=== PATIENT | female | born 1985 | race Caucasian/White ===

== ENCOUNTER 2023-09-11 10:18 | Emergency (ER) | payer OTHER, SELFPAY ==
[2023-09-11 10:28] VITALS: BP 146/95
--- NOTE | 2023-09-11 10:42 | EDRN ---
Faustino Bledsoe PA in room w/ pt at this time.
--- NOTE | 2023-09-11 10:45 | ED.GENMED ---
History of Present Illness
General
Chief Complaint: Flank Pain
Time Seen by Provider: 09/11/23 10:32
Travel History
Have you had any contact with someone who has COVID-19?: No
Do you have any symptoms of coronavirus? Fever > 100 degrees, chills, cough, shortness of breath, sore throat, loss of taste or smell, muscle aches, or headache?: No
History of Present Illness
History of Present Illness:
38-year-old female with history of depression and bipolar disorder presents to the emergency department for evaluation of right flank pain beginning last night. Initially was present over the right kidney region, today radiates to the right
anterior abdomen. Pain is made worse when she is twisting or upright, improved when lying supine. No colicky nature or sharp nature to the pain. Denies any lower urinary tract voiding symptoms, fever, chills, sweats, nausea, or vomiting. Denies
any history of intra-abdominal surgery
Past History
Past History
ED Past Medical History: Psychiatric (Bipolar disorder) and Other (Polycystic ovaries)
ED Past Surgical History: None
Social History
Tobacco: Non-smoker
Alcohol: None
Drug: None
Personal: Single
Living: with family
Employment: Employed
Family History
Family History: Other (Noncontributory)
Review of Systems
Review of Systems
Allergies reviewed?: Yes
All Other Systems: ROS reviewed and negative except as documented in HPI and ROS
Phy Exam
Physical Exam
Physical Exam:
GEN: Well appearing, NAD, WDWN
HEENT: Oral mucosa moist, no scleral icterus
Cardiac: Regular rate
Lung: No respiratory distress, no tachypnea
Abdomen: Soft, nontender, no CVA tenderness bilaterally
MSK: No gross deformity or injuries
Skin: Good color, no pallor or jaundice, no rashes
Neuro: AO x3, moves all extremities freely
Psych: Calm, cooperative
Course
Orders/Labs/Results
Orders:
Orders
09/11/23 10:45
Ketorolac [Toradol] 30 mg IM NOW STA
Test Result ONCE
09/11/23 10:58
Beta Hcg Urine Qualitative Screen [HCG, Urine Qualitative Screen] Urgent
Date Specimen was Collected: 09/11/23
Time Specimen was Collected: 10:56
Urinalysis Reflex To Culture Urgent
Date Specimen was Collected: 09/11/23
Time Specimen was Collected: 10:56
Urine Microscopic Reflex Cult Urgent
Urine Culture Urgent
MYLES Source: U
Specimen Description:
Date Specimen was Collected: 09/11/23
Time Specimen was Collected: 10:56
Abnormal Lab Results
09/11/23
10:58
Leukocyte Esterase Rfl 1+ A
(Negative)
Urine RBC 3-6 A /HPF
(0-2)
Urine WBC (Reflex) 11-15 A /HPF
(0-5)
Urine Bacteria (Reflex) Many A
(Negative)
Vital Signs
Initial and Last Documented VS:
Initial Vital Signs
Temp Pulse Resp BP Pulse Ox
98.7 F 97 18 146/95 100
09/11/23 10:28 09/11/23 10:28 09/11/23 10:28 09/11/23 10:28 09/11/23 10:28
Last Documented Vital Signs
Temp Pulse Resp BP Pulse Ox
98.7 F 70 14 123/94 97
09/11/23 10:28 09/11/23 11:10 09/11/23 11:10 09/11/23 11:10 09/11/23 11:10
MDM/Problems Addressed
MDM/Problems Addressed:
Patient does not present with typical colicky pain that would be expected with kidney stone. She has no significant RBCs to suggest a stone either. Urinalysis does show bacteria however it is quite contaminated by squamous cells. She has no lower
urinary tract voiding symptoms or fevers suggesting acute pyelonephritis. Her pain essentially resolved after single dose of Toradol. This is likely musculoskeletal etiology, discussed supportive care with NSAIDs and muscle relaxants on a as
needed basis. ED return parameters discussed to include lower urinary tract voiding symptoms, fevers, or intractable pain
*Critical Care Note
Total Time (30-74mins, 75-104mins- exclusive of procedures): Not Applicable
ED Attending Note
-
Portions of this chart may have been created with voice recognition software.� Occasional wrong word or��sound alike� substitutions may have occurred due to the inherent limitations of voice recognition software.
Discharge Plan
Departure
Patient Disposition: Home (Routine Discharge)
Date of Disposition: 09/11/23
Time of Disposition: 12:09
Patient with high blood pressure during this ER visit?: No
Discharge Problem:
Acute right flank pain
Instructions: Flank Pain (DC)
Prescriptions:
No Action
ziprasidone HCl [Geodon] 40 MG capsule
80 mg PO HS
escitalopram oxalate 20 MG tablet
20 mg PO HS
Referrals:
Mariama Morrison DO [Family Provider] -
Activity Restrictions/Additional Instructions:
Your pain is likely muscular. There is no sign of UTI in your urine specimen
Interventions
Interventions:
*Risk Screen - Suicide Last Done: 09/11/23 10:28
*General Assessment Last Done: 09/11/23 10:28
*Neglect/Abuse Screening Last Done: 09/11/23 10:28
ED- Fall Risk Assessment Last Done: 09/11/23 10:55
*ED COVID-19 Vaccine History Last Done: 09/11/23 10:28
*Nursing Disposition Last Done: 09/11/23 12:14
QV-Labvwk-Foqyvebxfb Assessment Last Done: 09/11/23 10:55
ED-Female Genitourinary Assessment Last Done: 09/11/23 10:55
Discharge Date and Time
Discharge Date/Time: 09/11/23 12:15
[2023-09-11] MEDS: TORADOL 30 MG IM (10:54)
[2023-09-11 10:55] VITALS: BMI 31.0
[2023-09-11 11:07] LABS: Urine Albumin Negative (Neg - Trace); Urine Bilirubin Negative (Negative); Urine Character Slightly Cloudy (Clear); Urine Color Yellow; Urine Glucose Negative (Negative); Urine Ketone Negative (Negative); Urine Leukocyte 1+ (Negative); Urine Nitrite Negative (Negative); Urine Occult Blood Negative (Negative); Urine Specific Gravity 1.015 (<1.030); Urine Urobilinogen Negative (Neg - 1+)
[2023-09-11 11:10] VITALS: BP 123/94
[2023-09-11 11:21] LABS: HCG, Urine Qualitative Screen Negative
[2023-09-11 12:08] LABS: Urine Mucus Moderate
[2023-09-11 12:09] LABS: Urine Amorphous Seen; Urine Squamous Cell >30 /LPF (Few)
[2023-09-11 12:11] LABS: Urine Bacteria Many (Negative)
== END 2023-09-11 12:15 | disposition home or self-care (01) ==
LOC: EMR 10:18
PROVIDERS: Physician Assistant; EMERGENCY PHYSICIAN Emergency Medicine; FAMILY PHYSICIAN Family Medicine
DX: R10.9 Unspecified abdominal pain (principal); R10.31 Right lower quadrant pain
CPT/HCPCS: 99284; 96372; 81003; 81015; 81025; 87086